=== PATIENT | female | born 1950 | race Caucasian/White ===

== ENCOUNTER 2018-12-27 14:06 | Inpatient (IN) | payer MEDICARE, OTHER ==
[~2018-12-27] VITALS: Ht 152.4 cm; Wt 77.3 kg
[2018-12-27 15:27] LABS: BASOPHILS ABSOLUTE AUTO 0.09 K/mm3 (0.00-0.23); BASOPHILS PERCENT AUTO 1 % (0-2); EOSINOPHILS ABSOLUTE AUTO 0.17 K/mm3 (0.00-0.68); EOSINOPHILS PERCENT AUTO 1 % (0-6); Hematocrit 32.2 % (33.0-51.0); Hemoglobin 10.1 g/dL (11.5-16.0); IMMATURE GRAN ABSOLUTE AUTO 0.07 K/mm3 (0.00-0.10); IMMATURE GRAN PERCENT AUTO 1 % (0-1); LYMPHOCYTES ABSOLUTE AUTO 0.52 K/mm3 (0.84-5.20); LYMPHOCYTES PERCENT AUTO 3 % (21-46); MONOCYTES ABSOLUTE AUTO 0.75 K/mm3 (0.16-1.47); MONOCYTES PERCENT AUTO 5 % (4-13); Mean Corpuscular HGB 27.3 pg (26.0-34.0); Mean Corpuscular HGB Conc 31.4 g/dL (31.5-36.5); Mean Corpuscular Volume 87 fL (80-100); Mean Platelet Volume 8.9 fL (9.1-12.4); NEUTROPHILS ABSOLUTE AUTO 13.53 K/mm3 (1.96-9.15); NEUTROPHILS PERCENT AUTO 89 % (41-73); Platelet Count 280 K/mm3 (150-400); RDW Coefficient Variation 19.9 % (11.7-14.2); RDW Standard Deviation 63.1 fL (35.1-46.3); White Blood Cell Count 15.13 K/mm3 (4.00-11.30)
[2018-12-27 15:47] LABS: International Normalized Ratio 1.03; Prothrombin Time Results 10.9 Sec (9.7-11.5)
[2018-12-27 15:52] LABS: Alanine Aminotransfer (ALT/SGP 16 U/L (12-78); Albumin, Blood 2.9 g/dL (3.4-5.0); Albumin/Globulin Ratio 0.5 (0.8-1.8); Alk Phos 102 U/L (50-136); Anion Gap 7 mmol/L (6-16); Aspartate Aminotrans (AST/SGOT 13 U/L (12-37); Bilirubin, Total 0.3 mg/dL (0.1-1.0); Blood Urea Nitrogen 15 mg/dL (8-24); Bun/Creatinine Ratio 28.1 (12.0-20.0); CO2, Blood 24 mmol/L (21-32); Calcium, Blood 8.4 mg/dL (8.5-10.1); Chloride, Blood 103 mmol/L (98-108); Creatinine, Blood 0.53 mg/dL (0.40-1.00); Globulin, Blood 5.4 g/dL (2.2-4.0); Glomerular Filtration Rate >60 (60-); Glucose, Blood 219 mg/dL (70-99); Sodium, Blood 134 mmol/L (136-145); Total Protein, Blood 8.3 g/dL (6.4-8.2)
[2018-12-27 17:00] LABS: Source, Urine Catheter
[2018-12-27] MEDS ORDERED: HYDHCL25 PO (17:02)
[2018-12-27] MEDS ORDERED: GABA300 PO (17:03)
[2018-12-27] MEDS ORDERED: Hydrocodone-Ap1 EA26 PO (17:03)
[2018-12-27] MEDS ORDERED: DULO60 PO (17:04)
[2018-12-27] MEDS ORDERED: METFORMIN HCL1000 M1 PO (17:32)
[2018-12-27 17:34] LABS: Bilirubin, Urine Neg (Neg); Blood, Urine 4+ (Neg); Glucose Qualitative, Urine Neg (Neg); Ketones, Urine 1+ (Neg); Leukocyte Esterase, Urine 3+ (Neg); Nitrite, Urine Neg (Neg); Protein, Urine 2+ (Neg); Urobilinogen, Urine 1+ (Normal)
[2018-12-27 17:45] LABS: Appearance, Urine Hazy (Clear); Color, Urine Yellow (P-Yellow)
[2018-12-27 17:46] LABS: Bacteria Many /hpf; Squamous Epithelial Cells Many /hpf (Few); White Blood Cells, Urine 25-50 /hpf (0-5)
[2018-12-27 17:47] LABS: Mucus Light (0-Heavy)
[2018-12-27] MEDS ORDERED: IBUP600 PO (21:39)
--- NOTE | 2018-12-27 21:43 | NUR ---
2129: RECEIVED REPORT AND PATIENT ARRIVED TO MED FLOOR. PATIENT C/O PAIN 8/10 ON HER BOTTOM AND FRANCO AREA 2ND TO HYDRITIS SKIN CONDITION. PICTURES TAKEN FOR CHART. OF BOTTOM, PERINEUM AND BACK OF HEAD, WHERE SHE HAS A WOUND FROM A FALL PRIOR TO ADMISSION. PHYSICAL ASSESSMENT COMPLETED. ADMISSION BEING DONE BY DAIRY PROCESSING EQUIPMENT OPERATOR. WARM BLANKET APPLIED. BED LOW AND LOCKED. CALL [place]O WITHIN REACH.
[2018-12-28 05:37] LABS: BASOPHILS ABSOLUTE AUTO 0.05 K/mm3 (0.00-0.23); BASOPHILS PERCENT AUTO 1 % (0-2); EOSINOPHILS ABSOLUTE AUTO 0.08 K/mm3 (0.00-0.68); EOSINOPHILS PERCENT AUTO 1 % (0-6); Hematocrit 27.5 % (33.0-51.0); Hemoglobin 8.7 g/dL (11.5-16.0); IMMATURE GRAN ABSOLUTE AUTO 0.05 K/mm3 (0.00-0.10); IMMATURE GRAN PERCENT AUTO 1 % (0-1); LYMPHOCYTES ABSOLUTE AUTO 0.57 K/mm3 (0.84-5.20); LYMPHOCYTES PERCENT AUTO 7 % (21-46); MONOCYTES PERCENT AUTO 5 % (4-13); Mean Corpuscular HGB Conc 31.6 g/dL (31.5-36.5); Mean Corpuscular Volume 85 fL (80-100); Mean Platelet Volume 8.8 fL (9.1-12.4); NEUTROPHILS ABSOLUTE AUTO 7.64 K/mm3 (1.96-9.15); NEUTROPHILS PERCENT AUTO 87 % (41-73); Platelet Count 218 K/mm3 (150-400); RDW Coefficient Variation 19.9 % (11.7-14.2); RDW Standard Deviation 62.4 fL (35.1-46.3); Red Blood Cell Count 3.22 M/mm3 (3.80-5.20); White Blood Cell Count 8.79 K/mm3 (4.00-11.30)
[2018-12-28 05:57] LABS: Anion Gap 4 mmol/L (6-16); Blood Urea Nitrogen 11 mg/dL (8-24); Bun/Creatinine Ratio 19.9 (12.0-20.0); CO2, Blood 28 mmol/L (21-32); Chloride, Blood 105 mmol/L (98-108); Creatinine, Blood 0.55 mg/dL (0.40-1.00); Glomerular Filtration Rate >60 (60-); Glucose, Blood 134 mg/dL (70-99); Potassium, Blood 3.6 mmol/L (3.5-5.5); Sodium, Blood 137 mmol/L (136-145)
--- NOTE | 2018-12-28 16:00 | NUR ---
SUMMARY PT IS A/O X4, PLEASANT AFFECT. SHE HAS BEEN UP w FWW, SBA. SHE HAD PHYTHER TODAY. RN NICU ASSISTED HER TO SHOWER. SHE STATE HAD SOME LIGHTHEADEDNESS WHEN UP HOWEVER IMPROVED FROM PREVIOUS DAY WHEN SHE FELL @ HOME. IV ANTIBX CONTINUE R/T UTI. PT HAS BEEN AFEBRILE SO FAR TODAY, VSS. SHE STATE PAIN R/T FALL LLE & H/A. SHE HAS HX CHR HYDRADENTITIS SKIN D/O, BUTTOCKS/FRANCO AREA EXCORIATION PAIN. HAVE GIVEN NORCO APPROX Q4 FOR RELIEF/CONTROL. SHE DECLINES PULLUPS OR BARRIER OINT TO EXCORIATIONS, STATE HER DR PREFERS OPEN TO AIR.
--- NOTE | 2018-12-29 04:32 | NUR ---
SHIFT SUMMARY PT CONTINUES TO URINATE FREQUENTLY. PT REQUIES SBA TO BSC SHE IS UNSTEADY AT TIMES. PT FRANCO AREA AND BUTTOCKS ARE STILL RED AND WEEPING. PT HAS SLEPT WELL BETWEEN VOIDING. PT CURRENTLY SLEEPING IN NO DISTRESS.
--- NOTE | 2018-12-29 18:10 | NUR ---
Shift Summary A/Ox3, pleasant and cooperative with care. Pt up to bedside commode c 1 assist, seems to be weak; however does know her limits. Medicated for L hip pain x 2 per EMAR. Denies N/V/D. Medicated for constipation with no results yet. Pt states feeling like the room is turning when therapy was in to see her today. Call light in reach and able to make needs known. VSS, afebrile. No other acute changes.
[2018-12-29 20:47] LABS: Vancomycin, Trough 5.7 ug/mL (5.0-10.0)
--- NOTE | 2018-12-30 04:22 | NUR ---
SHIFT SUMMARY PT HAD NO ISSUES NOTED. PT VOIDING REGULARLY BUT NOT FREQUENT LAST SHIFT. PT CONTINUES TO HAVE LEFT HIP DISCOMFORT. PT TX PER EMAR WITH GOOD RELIEF. PT HAS SLEPT BETTER TONIGHT AND IS CURRENTLY SLEEPING. CALL LIGHT IN REACH.
[2018-12-30 05:23] LABS: BASOPHILS ABSOLUTE AUTO 0.05 K/mm3 (0.00-0.23); BASOPHILS PERCENT AUTO 1 % (0-2); EOSINOPHILS ABSOLUTE AUTO 0.32 K/mm3 (0.00-0.68); EOSINOPHILS PERCENT AUTO 5 % (0-6); Hematocrit 27.6 % (33.0-51.0); Hemoglobin 8.7 g/dL (11.5-16.0); Mean Corpuscular HGB 27.2 pg (26.0-34.0); Mean Corpuscular HGB Conc 31.5 g/dL (31.5-36.5); Mean Corpuscular Volume 86 fL (80-100); Mean Platelet Volume 9.2 fL (9.1-12.4); Platelet Count 230 K/mm3 (150-400); RDW Coefficient Variation 19.4 % (11.7-14.2); RDW Standard Deviation 61.4 fL (35.1-46.3); White Blood Cell Count 6.01 K/mm3 (4.00-11.30)
[2018-12-30 05:24] LABS: IMMATURE GRAN ABSOLUTE AUTO 0.05 K/mm3 (0.00-0.10); IMMATURE GRAN PERCENT AUTO 1 % (0-1); LYMPHOCYTES ABSOLUTE AUTO 0.84 K/mm3 (0.84-5.20); LYMPHOCYTES PERCENT AUTO 14 % (21-46); MONOCYTES ABSOLUTE AUTO 0.54 K/mm3 (0.16-1.47); MONOCYTES PERCENT AUTO 9 % (4-13); NEUTROPHILS ABSOLUTE AUTO 4.21 K/mm3 (1.96-9.15); NEUTROPHILS PERCENT AUTO 70 % (41-73)
[2018-12-30 05:38] LABS: Anion Gap 2 mmol/L (6-16); Blood Urea Nitrogen 14 mg/dL (8-24); Bun/Creatinine Ratio 19.9 (12.0-20.0); CO2, Blood 32 mmol/L (21-32); Calcium, Blood 8.2 mg/dL (8.5-10.1); Chloride, Blood 103 mmol/L (98-108); Glomerular Filtration Rate >60 (60-); Glucose, Blood 140 mg/dL (70-99); Potassium, Blood 3.9 mmol/L (3.5-5.5); Sodium, Blood 137 mmol/L (136-145)
--- NOTE | 2018-12-30 16:11 | NUR ---
WARMED PRUNE JUICE, MELTED BUTTER AND APPLE JUICE GIVEN.
--- NOTE | 2018-12-30 16:32 | NUR ---
ALERT. ORIENTED. ONE PERSON ASSIST TO BSC. MEDICATED FOR PAIN T/O SHIFT W/GOOD RESULTS. GOOD APPETITE. TELE ON. IV PATENT. AWARE INFECTION CONTROL MD WILL SEE HER TOMORROW. CONRADO.
--- NOTE | 2018-12-30 17:26 | NUR ---
MEPILEX PLACED TO RT BUTTOCK DUE TO SOME WEEPING. SURGICAL SITE NOT COVERED PATIENT HAS SAID HER MD WANTED IT OPEN TO AIR. SURGICAL SITE IS DRY.
--- NOTE | 2018-12-31 04:51 | NUR ---
SHIFT SUMMARY PT REPORTS FEELING STRONGER BUT STILL HAS DIZZINESS WHEN SHE STANDS. PT IS STILL VOIDING FREQUENTLY. PT HAS COMPLAINTS FROM L HIP AND HER SKIN CONDITION. DRESSING ON HER BUTTOCK WAS CHANGED AND AREA CLEANED AND DRIED. PT CURRENTLY SLEEPING AND BREATHING EASY. CALL LIGHT IN DEJON.
[2018-12-31 09:41] LABS: Vancomycin, Trough 21.7 ug/mL (5.0-10.0)
[2018-12-31] MEDS ORDERED: ACET325 PO (11:47)
[2018-12-31] MEDS ORDERED: JUVEN PACKET1 EACH PO (11:49)
[2018-12-31] MEDS ORDERED: LINE600 PO (11:52)
[2018-12-31] MEDS ORDERED: Florastor250 MG PO (11:52)
[2018-12-31] MEDS ORDERED: DOXY100 PO (14:48)
--- NOTE | 2018-12-31 16:30 | NUR ---
DISCHARGE AT 1553 PATIENT DISCHARGED HOME WITH , THEY LIVE IN [facility] AND WILL FOLLOW UP WITH PCP AND WOUND CARE THERE. PATIENT RECEIVED 2 DOSES OF NORCO TODAY FOR HEADACHE (FROM HEAD LAC AREA), HIP PAIN, AND GENERALIZED PAIN. RECEIVED PAPER SCRIPT FOR NORCO BECAUSE PT STATED SHE WAS RUNNING OUT OF HER HOME AMOUNT. DISCHARGE PACKET EXPLAINED TO PATIENT AND . IV REMOVED.
== END 2018-12-31 15:54 | disposition home or self-care (01) | DRG 872 ==
LOC: ER 14:06 → MEDS 18:54 → ENPENDDIS 12-31 11:19 → MEDS 12-31 15:54
PROVIDERS: Internal Medicine; Nurse Practitioner Acute Care; Physician Assistant; ADMIT Internal Medicine
DX: A41.02 Sepsis due to Methicillin resistant Staphylococcus aureus (principal); N39.0 Urinary tract infection, site not specified; L73.2 Hidradenitis suppurativa; J44.9 Chronic obstructive pulmonary disease, unspecified; E11.9 Type 2 diabetes mellitus without complications; W19.XXXA Unspecified fall, initial encounter; E66.01 Morbid (severe) obesity due to excess calories; Z87.891 Personal history of nicotine dependence; Z99.81 Dependence on supplemental oxygen; Z79.84 Long term (current) use of oral hypoglycemic drugs; Z79.899 Other long term (current) drug therapy
CPT/HCPCS: 36415; 70450; 71046; 80048; 80053; 80202; 81001; 82565; 82947; 83605; 84484; 85025; 85610; 85730; 87040; 87077; 87081; 87086; 87186; 90471; 90714; 93005; 93010; 94760; 96361; 96374; 97110; 97112; 97116; 97162; 97530; 99285-25; A9270; A9270-GY; J1650; J3370; J7030; J7050; J7120

== ENCOUNTER 2022-01-19 23:10 | Emergency (ER) | payer MEDICARE, BC ==
[~2022-01-19] VITALS: Ht 152.4 cm; Wt 76.2 kg
[~2022-01-19 23:10] MED LIST: ACET325 PO; DOXY100 PO; DULO60 PO; Florastor250 MG PO; GABA300 PO; HYDHCL25 PO; Hydrocodone-Ap1 EA26 PO; IBUP600 PO; JUVEN PACKET1 EACH PO; LINE600 PO; METFORMIN HCL1000 M1 PO
[2022-01-19 23:35] LABS: BASOPHILS PERCENT AUTO 1 % (0-2); EOSINOPHILS ABSOLUTE AUTO 0.27 K/mm3 (0.00-0.68); EOSINOPHILS PERCENT AUTO 3 % (0-6); Hematocrit 34.1 % (33.0-51.0); Hemoglobin 10.6 g/dL (11.5-16.0); IMMATURE GRAN ABSOLUTE AUTO 0.05 K/mm3 (0.00-0.10); IMMATURE GRAN PERCENT AUTO 1 % (0-1); LYMPHOCYTES ABSOLUTE AUTO 0.78 K/mm3 (0.84-5.20); LYMPHOCYTES PERCENT AUTO 8 % (21-46); MONOCYTES ABSOLUTE AUTO 0.81 K/mm3 (0.16-1.47); MONOCYTES PERCENT AUTO 8 % (4-13); Mean Corpuscular HGB 22.6 pg (26.0-34.0); Mean Corpuscular HGB Conc 31.1 g/dL (31.5-36.5); Mean Corpuscular Volume 73 fL (80-100); Mean Platelet Volume 9.5 fL (9.1-12.4); NEUTROPHILS PERCENT AUTO 79 % (41-73); Platelet Count 234 K/mm3 (150-400); RDW Coefficient Variation 16.8 % (11.7-14.2); RDW Standard Deviation 43.4 fL (35.1-46.3); Red Blood Cell Count 4.68 M/mm3 (3.80-5.20); White Blood Cell Count 9.61 K/mm3 (4.00-11.30)
[2022-01-19] MEDS ORDERED: METOPROLOL TART25 MG PO (23:38)
[2022-01-19] MEDS ORDERED: ISOSORBIDE MONO30 MG PO (23:38)
[2022-01-19] MEDS ORDERED: DODEX1000 MCG/3 IJ (23:38)
[2022-01-19 23:49] LABS: Albumin, Blood 3.1 g/dL (3.4-5.0); Albumin/Globulin Ratio 0.6 (0.8-1.8); Bilirubin, Total 0.5 mg/dL (0.1-1.0); Calcium, Blood 8.4 mg/dL (8.5-10.1); Creatinine, Blood 0.65 mg/dL (0.40-1.00); Globulin, Blood 5.1 g/dL (2.2-4.0); Potassium, Blood 4.2 mmol/L (3.5-5.5); Total Protein, Blood 8.2 g/dL (6.4-8.2)
[2022-01-20 01:32] LABS: Influenza A, PCR NEGATIVE (NEGATIVE); Influenza B, PCR NEGATIVE (NEGATIVE); Resp Syncytial Virus, PCR NEGATIVE (NEGATIVE); SARS-Cov-2 (COVID-19) PCR, MMC NEGATIVE (NEGATIVE)
[2022-01-20] MEDS ORDERED: DOXY100 PO (02:16)
== END 2022-01-20 02:23 | disposition home or self-care (01) ==
LOC: ER 23:10
PROVIDERS: Emergency Medicine; Student in an Organized Health Care Education/Training Program
DX: J44.0 Chronic obstructive pulmonary disease with (acute) lower respiratory infection (principal); J18.9 Pneumonia, unspecified organism; C34.90 Malignant neoplasm of unspecified part of unspecified bronchus or lung; E11.9 Type 2 diabetes mellitus without complications; I25.2 Old myocardial infarction; Z88.1 Allergy status to other antibiotic agents; Z79.899 Other long term (current) drug therapy; Z79.84 Long term (current) use of oral hypoglycemic drugs
CPT/HCPCS: 0241U; 36415; 71045; 80053; 83880; 84484; 85025; 85379; 93005; 93010; 96374; 96375; 99284-25; J1885; J3010

== ENCOUNTER → 2023-03-21 | Outpatient (CLI) | payer MEDICARE, BC ==
[~2023-03-21] MED LIST changes: +DODEX1000 MCG/3 IJ; +ISOSORBIDE MONO30 MG PO; +METOPROLOL TART25 MG PO
== END | disposition home or self-care (01) ==
LOC: LAB 15:11 → LAB SHORT 15:11
DX: T14.8XXA Other injury of unspecified body region, initial encounter (principal); L03.116 Cellulitis of left lower limb; Z85.118 Personal history of other malignant neoplasm of bronchus and lung
CPT/HCPCS: 87070; 87077; 87147; 87186; 87205

== ENCOUNTER 2023-03-29 01:45 | Day surgery (SDC) | payer MEDICARE, BC | END 2023-03-29 22:52 | disposition home or self-care (01) | LOC: WOUND 01:45 | DX: L73.2 Hidradenitis suppurativa (principal); C34.90 Malignant neoplasm of unspecified part of unspecified bronchus or lung; I10 Essential (primary) hypertension; R06.02 Shortness of breath; E08.59 Diabetes mellitus due to underlying condition with other circulatory complications | CPT/HCPCS: A9270; G0463 ==

== ENCOUNTER 2023-04-12 02:49 | Day surgery (SDC) | payer MEDICARE, BC | END 2023-04-12 22:47 | disposition home or self-care (01) | LOC: WOUND 02:49 | DX: L73.2 Hidradenitis suppurativa (principal); C34.90 Malignant neoplasm of unspecified part of unspecified bronchus or lung; I10 Essential (primary) hypertension; E08.59 Diabetes mellitus due to underlying condition with other circulatory complications | CPT/HCPCS: G0463 ==

== ENCOUNTER 2023-04-19 01:38 | Day surgery (SDC) | payer MEDICARE, BC | END 2023-04-19 23:02 | disposition home or self-care (01) | LOC: WOUND 01:38 | DX: L73.2 Hidradenitis suppurativa (principal); C34.90 Malignant neoplasm of unspecified part of unspecified bronchus or lung; E11.59 Type 2 diabetes mellitus with other circulatory complications; I10 Essential (primary) hypertension; R06.02 Shortness of breath | CPT/HCPCS: G0463 ==

== ENCOUNTER 2023-04-26 02:47 | Day surgery (SDC) | payer MEDICARE, BC | END 2023-04-26 23:23 | disposition home or self-care (01) | LOC: WOUND 02:47 | DX: L73.2 Hidradenitis suppurativa (principal); C34.90 Malignant neoplasm of unspecified part of unspecified bronchus or lung; I10 Essential (primary) hypertension; E11.59 Type 2 diabetes mellitus with other circulatory complications | CPT/HCPCS: A9270; G0463 ==

== ENCOUNTER 2023-05-01 18:40 | Emergency (ER) | payer OTHER, MEDICARE, BC ==
[~2023-05-01] VITALS: Ht 152.4 cm; Wt 64.9 kg
[2023-05-01 18:59] LABS: BASOPHILS ABSOLUTE AUTO 0.17 K/mm3 (0.00-0.23); BASOPHILS PERCENT AUTO 1 % (0-2); EOSINOPHILS ABSOLUTE AUTO 0.19 K/mm3 (0.00-0.68); EOSINOPHILS PERCENT AUTO 1 % (0-6); Hematocrit 35.3 % (33.0-51.0); Hemoglobin 10.8 g/dL (11.5-16.0); IMMATURE GRAN ABSOLUTE AUTO 0.08 K/mm3 (0.00-0.10); IMMATURE GRAN PERCENT AUTO 1 % (0-1); LYMPHOCYTES ABSOLUTE AUTO 1.83 K/mm3 (0.84-5.20); LYMPHOCYTES PERCENT AUTO 14 % (21-46); MONOCYTES PERCENT AUTO 7 % (4-13); Mean Corpuscular HGB 22.8 pg (26.0-34.0); Mean Corpuscular HGB Conc 30.6 g/dL (31.5-36.5); Mean Corpuscular Volume 75 fL (80-100); Mean Platelet Volume 9.1 fL (9.1-12.4); NEUTROPHILS PERCENT AUTO 76 % (41-73); Platelet Count 372 K/mm3 (150-400); RDW Standard Deviation 45.1 fL (35.1-46.3); Red Blood Cell Count 4.74 M/mm3 (3.80-5.20); White Blood Cell Count 13.27 K/mm3 (4.00-11.30)
[2023-05-01 19:24] LABS: Albumin, Blood 2.6 g/dL (3.4-5.0); Albumin/Globulin Ratio 0.5 (0.8-1.8); Bilirubin, Total 0.5 mg/dL (0.1-1.0); Bun/Creatinine Ratio 31.2 (12.0-20.0); Calcium, Blood 8.8 mg/dL (8.5-10.1); Creatinine, Blood 0.55 mg/dL (0.40-1.00); Globulin, Blood 4.9 g/dL (2.2-4.0); Potassium, Blood 4.1 mmol/L (3.5-5.5); Total Protein, Blood 7.5 g/dL (6.4-8.2)
[2023-05-01 19:30] VITALS: BP 120/79
[2023-05-01] MEDS ORDERED: TRAZ50 PO (19:37)
[2023-05-01] MEDS ORDERED: Simvastatin20 MG PO (19:38)
[2023-05-01] MEDS ORDERED: METFORMIN HCL500 M2 PO (19:38)
[2023-05-01 19:46] LABS: International Normalized Ratio 1.1; Prothrombin Time Results 11.5 Sec (9.7-11.5)
== END 2023-05-01 20:49 | disposition home or self-care (01) ==
LOC: ER 18:40
PROVIDERS: Emergency Medicine
DX: S16.1XXA Strain of muscle, fascia and tendon at neck level, initial encounter (principal); S09.90XA Unspecified injury of head, initial encounter; M79.641 Pain in right hand; M79.604 Pain in right leg; V43.52XA Car driver injured in collision with other type car in traffic accident, initial encounter; R91.8 Other nonspecific abnormal finding of lung field; E04.1 Nontoxic single thyroid nodule; Z88.1 Allergy status to other antibiotic agents; J44.9 Chronic obstructive pulmonary disease, unspecified; E11.9 Type 2 diabetes mellitus without complications; I25.2 Old myocardial infarction; Z79.899 Other long term (current) drug therapy; Z79.84 Long term (current) use of oral hypoglycemic drugs; Z87.891 Personal history of nicotine dependence
CPT/HCPCS: 70450; 71045; 71260; 72125; 73130; 73610; 74177; 80053; 83690; 85025; 85610; 96374-59; 99285-25; J2270; Q9967

== ENCOUNTER 2023-05-12 01:08 | Day surgery (SDC) | payer MEDICARE, BC ==
[~2023-05-12 01:08] MED LIST changes: +METFORMIN HCL500 M2 PO; +Simvastatin20 MG PO; +TRAZ50 PO
== END 2023-05-12 22:53 | disposition home or self-care (01) ==
LOC: WOUND 01:08
DX: L73.2 Hidradenitis suppurativa (principal); C34.90 Malignant neoplasm of unspecified part of unspecified bronchus or lung; I10 Essential (primary) hypertension; R06.02 Shortness of breath; E11.59 Type 2 diabetes mellitus with other circulatory complications
CPT/HCPCS: G0463

== ENCOUNTER 2023-05-25 01:37 | Day surgery (SDC) | payer MEDICARE, BC | END 2023-05-25 22:52 | disposition home or self-care (01) | LOC: WOUND 01:37 | DX: L73.2 Hidradenitis suppurativa (principal); I10 Essential (primary) hypertension; C34.90 Malignant neoplasm of unspecified part of unspecified bronchus or lung; E08.59 Diabetes mellitus due to underlying condition with other circulatory complications | CPT/HCPCS: G0463 ==

== ENCOUNTER 2023-10-11 03:02 | Day surgery (SDC) | payer MEDICARE, BC | END 2023-10-11 23:06 | disposition home or self-care (01) | LOC: WOUND 03:02 | DX: L73.2 Hidradenitis suppurativa (principal); C34.90 Malignant neoplasm of unspecified part of unspecified bronchus or lung; I10 Essential (primary) hypertension | CPT/HCPCS: G0463 ==

== ENCOUNTER 2023-10-16 01:50 | Day surgery (SDC) | payer MEDICARE, BC | END 2023-10-16 04:31 | disposition home or self-care (01) | LOC: WOUND 01:50 | DX: L73.2 Hidradenitis suppurativa (principal); C34.90 Malignant neoplasm of unspecified part of unspecified bronchus or lung; E11.9 Type 2 diabetes mellitus without complications; I10 Essential (primary) hypertension | CPT/HCPCS: G0463 ==

== ENCOUNTER 2023-10-23 03:29 | Day surgery (SDC) | payer MEDICARE, BC | END 2023-10-23 23:16 | disposition home or self-care (01) | LOC: WOUND 03:29 | DX: L73.2 Hidradenitis suppurativa (principal); C34.90 Malignant neoplasm of unspecified part of unspecified bronchus or lung; E11.9 Type 2 diabetes mellitus without complications; I10 Essential (primary) hypertension; R06.02 Shortness of breath | CPT/HCPCS: G0463 ==

== ENCOUNTER 2023-11-30 03:08 | Day surgery (SDC) | payer MEDICARE, BC | END 2023-11-30 22:44 | disposition home or self-care (01) | LOC: WOUND 03:08 | DX: L73.2 Hidradenitis suppurativa (principal); C34.90 Malignant neoplasm of unspecified part of unspecified bronchus or lung; I10 Essential (primary) hypertension; R06.02 Shortness of breath | CPT/HCPCS: G0463 ==

== ENCOUNTER 2023-12-23 16:44 | Emergency (ER) | payer MEDICARE, BC ==
[~2023-12-23] VITALS: Ht 152.4 cm; Wt 55.8 kg
[2023-12-23 17:01] VITALS: BP 123/82
[2023-12-23] MEDS ORDERED: Acetaminophen 500 MG Tab PO ONE (17:50)
[2023-12-23] MEDS ORDERED: Lidocaine/Tetracaine/Epinephr 3 ML GEL SYRINGE TOP ONE (17:50)
[2023-12-23] MEDS ORDERED: Diphth,Pertuss(Acell),Tet Vac 0.5 ML VIAL IM ONE (19:05)
== END 2023-12-23 19:23 | disposition home or self-care (01) ==
LOC: ER 16:44
DX: S01.01XA Laceration without foreign body of scalp, initial encounter (principal); W22.8XXA Striking against or struck by other objects, initial encounter; Z88.1 Allergy status to other antibiotic agents; Z79.899 Other long term (current) drug therapy; Z79.84 Long term (current) use of oral hypoglycemic drugs; Z87.891 Personal history of nicotine dependence
CPT/HCPCS: 12001; 70450; 90471; 90715; 99283-25; A9270

== ENCOUNTER 2024-02-05 09:02 | Day surgery (SDC) | payer MEDICARE, BC | END 2024-02-05 23:47 | disposition home or self-care (01) | LOC: WOUND 09:02 | DX: L73.2 Hidradenitis suppurativa (principal); E11.622 Type 2 diabetes mellitus with other skin ulcer; S31.809D Unspecified open wound of unspecified buttock, subsequent encounter; S31.109D Unspecified open wound of abdominal wall, unspecified quadrant without penetration into peritoneal cavity, subsequent encounter; J44.9 Chronic obstructive pulmonary disease, unspecified; I10 Essential (primary) hypertension; I25.2 Old myocardial infarction; E11.9 Type 2 diabetes mellitus without complications; Z88.8 Allergy status to other drugs, medicaments and biological substances; X58.XXXD Exposure to other specified factors, subsequent encounter | CPT/HCPCS: G0463 ==

== ENCOUNTER 2024-02-12 02:20 | Day surgery (SDC) | payer MEDICARE, BC | END 2024-02-13 00:13 | disposition home or self-care (01) | LOC: WOUND 02:20 | DX: L73.2 Hidradenitis suppurativa (principal); C34.90 Malignant neoplasm of unspecified part of unspecified bronchus or lung; J44.9 Chronic obstructive pulmonary disease, unspecified; E11.621 Type 2 diabetes mellitus with foot ulcer; I10 Essential (primary) hypertension; I25.2 Old myocardial infarction | CPT/HCPCS: G0463 ==

== ENCOUNTER 2024-02-19 03:59 | Day surgery (SDC) | payer MEDICARE, BC ==
[2024-02-19] MEDS ORDERED: Lidocaine HCl 4% Cream 5 GM ONE (11:28)
[2024-02-20] MEDS ORDERED: TRAZ100 PO (23:48)
== END 2024-02-19 23:00 | disposition home or self-care (01) ==
LOC: WOUND 03:59
DX: L73.2 Hidradenitis suppurativa (principal); E11.9 Type 2 diabetes mellitus without complications; S31.109D Unspecified open wound of abdominal wall, unspecified quadrant without penetration into peritoneal cavity, subsequent encounter; X58.XXXD Exposure to other specified factors, subsequent encounter
CPT/HCPCS: A9270; G0463

== ENCOUNTER 2024-02-20 15:34 | Inpatient (IN) | payer MEDICARE, BC ==
[~2024-02-20] VITALS: Ht 152.4 cm; Wt 59.7 kg
[~2024-02-20 15:34] MED LIST changes: -Hydrocodone-Ap1 EA26 PO; +Norco 7.5-3251 EACH PO
[2024-02-20 16:33] LABS: BASOPHILS ABSOLUTE AUTO 0.18 K/mm3 (0.00-0.23); BASOPHILS PERCENT AUTO 1 % (0-2); EOSINOPHILS ABSOLUTE AUTO 0.09 K/mm3 (0.00-0.68); EOSINOPHILS PERCENT AUTO 1 % (0-6); Hematocrit 32.1 % (33.0-51.0); IMMATURE GRAN ABSOLUTE AUTO 0.11 K/mm3 (0.00-0.10); IMMATURE GRAN PERCENT AUTO 1 % (0-1); LYMPHOCYTES PERCENT AUTO 8 % (21-46); MONOCYTES ABSOLUTE AUTO 1.15 K/mm3 (0.16-1.47); MONOCYTES PERCENT AUTO 9 % (4-13); Mean Corpuscular HGB Conc 31.2 g/dL (31.5-36.5); Mean Corpuscular Volume 83 fL (80-100); Mean Platelet Volume 9.4 fL (9.1-12.4); NEUTROPHILS ABSOLUTE AUTO 10.71 K/mm3 (1.96-9.15); NEUTROPHILS PERCENT AUTO 81 % (41-73); Platelet Count 404 K/mm3 (150-400); RDW Coefficient Variation 18.6 % (11.7-14.2); RDW Standard Deviation 56.5 fL (35.1-46.3); Red Blood Cell Count 3.85 M/mm3 (3.80-5.20); White Blood Cell Count 13.24 K/mm3 (4.00-11.30)
[2024-02-20 16:52] LABS: Albumin, Blood 2.3 g/dL (3.4-5.0); Albumin/Globulin Ratio 0.5 (0.8-1.8); Bilirubin, Total 0.6 mg/dL (0.1-1.0); Bun/Creatinine Ratio 23.9 (12.0-20.0); Calcium, Blood 8.6 mg/dL (8.5-10.1); Creatinine, Blood 0.67 mg/dL (0.40-1.00); Potassium, Blood 4.4 mmol/L (3.5-5.5); Total Protein, Blood 7.3 g/dL (6.4-8.2)
[2024-02-20] MEDS ORDERED: NS 1,000 ML IV SCH (18:55)
[2024-02-20] MEDS ORDERED: Acetaminophen 500 MG Tab PO ONE (19:05)
[2024-02-20] MEDS ORDERED: LevoFLOXacin 750 MG/D5W 150ML 150 ML IV ONE (19:05)
[2024-02-20] MEDS ORDERED: FLU VACC TS2024-25(6MOS UP)/PF 45 MCG/0.5 ML SYRINGE IM SCH (22:30)
[2024-02-20] MEDS ORDERED: Ondansetron HCl 2 MG / ML 2ML Vial IV PRN (22:30)
[2024-02-20] MEDS ORDERED: Ipratropium/Albuterol SulF 2.5-0.5MG/3 ML Amp INH PRN (22:30)
[2024-02-20 22:56] LABS: Source, Urine Clean Catch
[2024-02-20] MEDS ORDERED: Enoxaparin 40 MG/0.4 ML SYR SC SCH (23:00)
[2024-02-20 23:07] LABS: Bilirubin, Urine Neg (Neg); Blood, Urine 5+ (Neg); Glucose Qualitative, Urine Neg (Neg); Ketones, Urine Neg (Neg); Leukocyte Esterase, Urine 3+ (Neg); Nitrite, Urine Neg (Neg); Protein, Urine 1+ (Neg); Urobilinogen, Urine NORM (Normal); pH, Urine 6.5 (5.0-8.0)
[2024-02-20 23:27] LABS: Appearance, Urine Clear (Clear); Color, Urine Yellow (P-Yellow)
[2024-02-20 23:28] LABS: Bacteria Mod /hpf; Red Blood Cells, Urine 0-2 /hpf (0-2); Squamous Epithelial Cells Few /hpf (Few); White Blood Cells, Urine 50-100 /hpf (0-5)
[2024-02-20 23:42] LABS: Influenza A, PCR NEGATIVE (NEGATIVE); Influenza B, PCR NEGATIVE (NEGATIVE); Resp Syncytial Virus, PCR NEGATIVE (NEGATIVE); SARS-Cov-2 (COVID-19) PCR, MMC NEGATIVE (NEGATIVE)
[2024-02-20] MEDS ORDERED: TRAZ100 PO (23:48)
[2024-02-21] VITALS (10 sets, daily range): BP systolic 105–148; BP diastolic 59–84
[2024-02-21] MEDS ORDERED: TraZODone HCl 100 MG Tab PO ONE (00:05)
[2024-02-21] MEDS ORDERED: HYDROcodone 7.5-APAP 325 TAB PO ONE (00:05)
[2024-02-21] MEDS ORDERED: FentaNYL Citrate 50 MCG/ML 2 ML Injection IV PRN (00:25)
[2024-02-21] MEDS ORDERED: Ketorolac Tromethamine 15mg Vial IV PRN (00:35)
[2024-02-21] MEDS ORDERED: Colchicine 0.6 MG TAB PO ONE (01:00)
[2024-02-21 03:26] LABS: BASOPHILS ABSOLUTE AUTO 0.09 K/mm3 (0.00-0.23); BASOPHILS PERCENT AUTO 1 % (0-2); EOSINOPHILS ABSOLUTE AUTO 0.13 K/mm3 (0.00-0.68); EOSINOPHILS PERCENT AUTO 2 % (0-6); Hematocrit 29.6 % (33.0-51.0); Hemoglobin 9.2 g/dL (11.5-16.0); IMMATURE GRAN ABSOLUTE AUTO 0.09 K/mm3 (0.00-0.10); IMMATURE GRAN PERCENT AUTO 1 % (0-1); LYMPHOCYTES ABSOLUTE AUTO 0.67 K/mm3 (0.84-5.20); LYMPHOCYTES PERCENT AUTO 8 % (21-46); MONOCYTES ABSOLUTE AUTO 0.86 K/mm3 (0.16-1.47); MONOCYTES PERCENT AUTO 11 % (4-13); Mean Corpuscular HGB Conc 31.1 g/dL (31.5-36.5); Mean Corpuscular Volume 84 fL (80-100); Mean Platelet Volume 9.4 fL (9.1-12.4); NEUTROPHILS ABSOLUTE AUTO 6.13 K/mm3 (1.96-9.15); NEUTROPHILS PERCENT AUTO 77 % (41-73); Platelet Count 290 K/mm3 (150-400); RDW Coefficient Variation 18.5 % (11.7-14.2); RDW Standard Deviation 57.3 fL (35.1-46.3); Red Blood Cell Count 3.54 M/mm3 (3.80-5.20); White Blood Cell Count 7.97 K/mm3 (4.00-11.30)
[2024-02-21 03:43] LABS: Albumin, Blood 2.1 g/dL (3.4-5.0); Albumin/Globulin Ratio 0.5 (0.8-1.8); Bilirubin, Total 0.4 mg/dL (0.1-1.0); Calcium, Blood 8.4 mg/dL (8.5-10.1); Creatinine, Blood 0.62 mg/dL (0.40-1.00); Globulin, Blood 4.5 g/dL (2.2-4.0); Potassium, Blood 3.5 mmol/L (3.5-5.5); Total Protein, Blood 6.6 g/dL (6.4-8.2)
--- NOTE | 2024-02-21 04:04 | NUR ---
SHIFT SUMMARY PT REMAINS ON NC THROUGH THE NIGHT. PT APPEARS TO BE COMFORTABLY RESTING ON HER PHONE FOR MOST OF THE NIGHT. PT NOTED SHE HAS HIDRADENITIS IN THE GROIN AND ON THE BUTTOCKS. PT STILL AOX4 GCS 15. PT VERY [place] AND IS VERY PLEASANT AND COOPERATIVE. WILL CONTINUE PLAN OF CARE.
[2024-02-21] MEDS ORDERED: HYDROcodone 7.5-APAP 325 TAB PO PRN ×2 (06:25→11:01)
[2024-02-21] MEDS ORDERED: Insulin Human Lispro 100 Units/ML 3ML Syringe SC SCH (07:30)
[2024-02-21 08:23] LABS: Base Excess Venous 2.2 mmol/L; Bicarbonate Venous 25.5 mmol/L (24.0-30.0); PCO2 Venous 55.1 mmHg (38-42); pH Blood Venous 7.32 (7.34-7.37)
[2024-02-21] MEDS ORDERED: MethylPREDNISolone Sod Succ 125 MG Vial IV SCH ×2 (09:00)
[2024-02-21] MEDS ORDERED: Colchicine 0.6 MG TAB PO SCH (09:00)
[2024-02-21 09:25] LABS: Magnesium, Blood 1.8 mg/dL (1.6-2.4); Phosphorus, Blood 3.8 mg/dL (2.5-4.9)
--- NOTE | 2024-02-21 14:55 | NUR ---
NURSE NOTE A+O X4, SPOUSE AT BEDSIDE. OT CURRENTLY AT BEDSIDE TO WORK WITH PATIENT. CALL LIGHT IN REACH, WILL CONTINUE WITH PLAN OF CARE.
--- NOTE | 2024-02-21 15:04 | NUR ---
NURSE NOTE DR. BAZAN ROUNDED, REQUESTED PATIENT BE PLACED ON BI-PAP FOR CO2 OF 50. I CONTACTED DONNELL HUSAIN WITH THIS REQUEST. CALL LIGHT IN REACH.
--- NOTE | 2024-02-21 17:53 | NUR ---
SHIFT SUMMARY A+O X4, ABLE TO MAKE NEEDS KNOWN. ONE PERSON ASSIST SBA TO BSC. PATIENT ON 2 LITERS NC WHICH IS HER NORMAL HOME O2 LEVEL. PATIENT WAS PLACED ON BI-PAP FOR ONE HOUR DUE TO CO2 LEVEL. PATIENT WORKED WITH PT AND OT DURING SHIFT. CHRONIC PAIN IN BACK AND BUTTOCK AT BASELINE, ABLE TO MOVE SELF IN BED. ECHO DONE TODAY DURING SHIFT. CALL LIGHT IN REACH, WILL CONTINUE TO TREAT.
[2024-02-21] MEDS ORDERED: NS 250 ML IV PRN (19:30)
--- NOTE | 2024-02-21 20:28 | NUR ---
ASSUMPTION OF CARE: PATIENT IS SITTING UPRIGHT IN BED AFTER BEING TOILETED BY HEAD USHER. PATIENT IS ALERT AND ORIENTED X 4, ABLE TO USE THE CALL LIGHT, MAKE NEEDS KNOWN, IS ON HOME BASELINE O2. MILD GENERALIZED WEAKNESS. CURRENTLY ST [address] DENIES CHEST PAIN, DOES ENDORSE PLEURITIC PAIN WITH COUGH. RHONCHI IN THE BASES CLEARED WITH COUGH. CURRENLTY INFUSING ABX. NO ACUTE CONCERNS FROM THIS RN.
[2024-02-21] MEDS ORDERED: TraZODone HCl 100 MG Tab PO SCH (21:00)
[2024-02-21] MEDS ORDERED: LevoFLOXacin 750 MG/D5W 150ML 150 ML IV SCH (21:00)
[2024-02-22 02:56] VITALS: BP 131/76
[2024-02-22 03:58] LABS: BASOPHILS ABSOLUTE AUTO 0.05 K/mm3 (0.00-0.23); BASOPHILS PERCENT AUTO 1 % (0-2); EOSINOPHILS ABSOLUTE AUTO 0.08 K/mm3 (0.00-0.68); EOSINOPHILS PERCENT AUTO 1 % (0-6); Hematocrit 28.7 % (33.0-51.0); IMMATURE GRAN ABSOLUTE AUTO 0.12 K/mm3 (0.00-0.10); IMMATURE GRAN PERCENT AUTO 1 % (0-1); LYMPHOCYTES ABSOLUTE AUTO 0.84 K/mm3 (0.84-5.20); LYMPHOCYTES PERCENT AUTO 9 % (21-46); MONOCYTES ABSOLUTE AUTO 0.71 K/mm3 (0.16-1.47); MONOCYTES PERCENT AUTO 8 % (4-13); Mean Corpuscular HGB 25.8 pg (26.0-34.0); Mean Corpuscular HGB Conc 31.4 g/dL (31.5-36.5); Mean Corpuscular Volume 82 fL (80-100); Mean Platelet Volume 9.2 fL (9.1-12.4); NEUTROPHILS ABSOLUTE AUTO 7.41 K/mm3 (1.96-9.15); NEUTROPHILS PERCENT AUTO 81 % (41-73); Platelet Count 301 K/mm3 (150-400); RDW Coefficient Variation 18.2 % (11.7-14.2); RDW Standard Deviation 54.4 fL (35.1-46.3); Red Blood Cell Count 3.49 M/mm3 (3.80-5.20); White Blood Cell Count 9.21 K/mm3 (4.00-11.30)
[2024-02-22 04:30] LABS: Bun/Creatinine Ratio 27.6 (12.0-20.0); Calcium, Blood 8.6 mg/dL (8.5-10.1); Creatinine, Blood 0.73 mg/dL (0.40-1.00)
--- NOTE | 2024-02-22 06:48 | NUR ---
EOS: NO CHANGES FROM ASSUMPTION OF CARE PLAN OF CARE CONTINUES, DENIES CHEST PAIN PRESSURE OR SOB.
[2024-02-22 07:58] VITALS: BP 142/77
[2024-02-22] MEDS ORDERED: Colchicine 0.6 MG TAB PO SCH (09:00)
--- NOTE | 2024-02-22 09:38 | NUR ---
0930 Pt c/o dyspnea. Heart rate 122 bpm, sinus tachycardia. Pt is 92% spo2 on 2 l/min, RR 20/min. NO wheezing appreciated on auscultation. Dr. Chance at bedside. B/P is stable. 0940 No significant changes to vital signs but pt states that she is feeling better, that dyspnea has improved. She remains sitting in high amezcua's position in bed. Reported to primary RN Bryn. Dr. Chance to investigate chart and possibly change orders. Pt states that she has had high heart rate up to 130s over the past two years, and was given medication for it as an outpatient.
[2024-02-22 11:08] VITALS: BP 145/74
[2024-02-22 14:13] LABS: Adenovirus Not Detected (NOT DETECT); Bordetella pertussis Not Detected (NOT DETECT); Chlamydophila pneumoniae Not Detected (NOT DETECT); Coronavirus 229E Not Detected (NOT DETECT); Coronavirus HKU1 Not Detected (NOT DETECT); Coronavirus NL63 Not Detected (NOT DETECT); Coronavirus OC43 Not Detected (NOT DETECT); Human Metapneumovirus Not Detected (NOT DETECT); Human Rhinovirus/Enterovirus Not Detected (NOT DETECT); Influenza A/2009-H1 Not Detected (NOT DETECT); Influenza A/H1 Not Detected (NOT DETECT); Influenza A/H3 Not Detected (NOT DETECT); Influenza B Not Detected (NOT DETECT); Mycoplasma pneumoniae Not Detected (NOT DETECT); Parainfluenza Virus 1 Not Detected (NOT DETECT); Parainfluenza Virus 2 Not Detected (NOT DETECT); Parainfluenza Virus 3 Not Detected (NOT DETECT); Parainfluenza Virus 4 Not Detected (NOT DETECT); Respiratory Syncytial Virus Not Detected (NOT DETECT); SARS-Cov-2 (COVID-19), BioFire Detected (NOT DETECT)
--- NOTE | 2024-02-22 14:33 | NUR ---
TRANSFER OF CARE PT A&Ox4, CALLS AND COMMUNICATES NEEDS APPROPRIATELY. SBA TO BATHROOM, CONTINENT OF URINE, NO BM AT THIS TIME. FRANCO AREA DRESSINGS CHANGED. BP STABLE, SINUS TACH 115's UP TO 130's WITH ACTIVITY, DENIES CHEST PRESSURE. RECONCILED HOME MEDICATIONS AND NOTIFIED PROVIDER THAT PT TAKE 25mg METOPROLOL BID AT HOME. SpO2> 92% 1-2L VIA NC AT REST, 3-4L WITH ACTIVITY, REPORT SOB WITH ACTIVITY. PT WITH MOMENT OF CP/SOB AT START OF SHIFT, PHYSICIAN AT BEDSIDE. CP SUBSIDED QUICKLY AND WITHOUT INTERVENTION. MANAGED PTs CHRONIC PAIN PER EMAR. NO OTHER EVENTS, REPORT GIVEN TO ALONSO OTOOLE AT APPROXIMATELY 1415.
--- NOTE | 2024-02-22 15:15 | NUR ---
Assumed care of patient. Pt resting in chair. LS diminished with fine rhonci in base of L Lung. HR reg but tachycardic. BT positive. Pt was informed that she tested positive for Covid. Isolation precautions explained. Pt denies pain or questions. Call light in reach. Will monitor.
[2024-02-22 15:52] VITALS: BP 148/75
--- NOTE | 2024-02-22 19:36 | NUR ---
SHIFT SUMMARY: Pt currently resting in bed. HR has remained tachycardic this shift. New orders for Metoprolol to start this evening. Pt has remained on her home oxygen of 1-4L depending on activity. No other changes at this time. WIll report to night RN.
[2024-02-22 20:18] VITALS: BP 156/87
[2024-02-22] MEDS ORDERED: Metoprolol Tartrate 25 MG Tab PO SCH (21:00)
--- NOTE | 2024-02-22 21:48 | NUR ---
TRANSFER NOTE HANDOFF REPORT FROM PCU GISELE. PT ARRIVED TO FLOOR VIA WC. PT ORIENTED TO UNIT. CALL BUTTON WITHIN REACH. [address] TELEMETRY IN PLACE. PERSONAL POSSESSIONS WITH PATIENT.
--- NOTE | 2024-02-23 03:01 | NUR ---
SHIFT SUMMARY TRANSFERED FROM PCU THIS SHIFT FOR PNEUMONIA. LIMITED CODE - MEDS OKAY. ISO FOR COVID+. IV ANTIB RX ARE SCHEDULED. ACHS CBG'S, LOW SS. SHE WILL GO HOME W/HH WHEN STABLE FOR DC. TELEMETRY: TACHY @ 101 BPM. ADA DIET. SHE IS ON 2 LPM O2, THIS IS HER BASELINE. STANDBY ASSIST - BRP. NO NEW CONCERNS THIS SHIFT.
[2024-02-23 04:52] VITALS: BP 151/77
[2024-02-23 04:53] LABS: BASOPHILS ABSOLUTE AUTO 0.12 K/mm3 (0.00-0.23); BASOPHILS PERCENT AUTO 1 % (0-2); EOSINOPHILS ABSOLUTE AUTO 0.41 K/mm3 (0.00-0.68); EOSINOPHILS PERCENT AUTO 5 % (0-6); Hematocrit 33.6 % (33.0-51.0); Hemoglobin 10.3 g/dL (11.5-16.0); IMMATURE GRAN ABSOLUTE AUTO 0.14 K/mm3 (0.00-0.10); IMMATURE GRAN PERCENT AUTO 2 % (0-1); LYMPHOCYTES PERCENT AUTO 16 % (21-46); MONOCYTES ABSOLUTE AUTO 0.77 K/mm3 (0.16-1.47); MONOCYTES PERCENT AUTO 9 % (4-13); Mean Corpuscular HGB 26.1 pg (26.0-34.0); Mean Corpuscular HGB Conc 30.7 g/dL (31.5-36.5); Mean Corpuscular Volume 85 fL (80-100); NEUTROPHILS ABSOLUTE AUTO 5.63 K/mm3 (1.96-9.15); NEUTROPHILS PERCENT AUTO 67 % (41-73); Platelet Count 335 K/mm3 (150-400); RDW Coefficient Variation 18.3 % (11.7-14.2); RDW Standard Deviation 57.7 fL (35.1-46.3); Red Blood Cell Count 3.95 M/mm3 (3.80-5.20); White Blood Cell Count 8.37 K/mm3 (4.00-11.30)
[2024-02-23 06:05] LABS: Bun/Creatinine Ratio 30.4 (12.0-20.0); Calcium, Blood 8.7 mg/dL (8.5-10.1); Creatinine, Blood 0.69 mg/dL (0.40-1.00); Potassium, Blood 4.4 mmol/L (3.5-5.5)
[2024-02-23 07:52] VITALS: BP 135/55
[2024-02-23] MEDS ORDERED: LEVOFLOXACIN250 M1 PO (11:08)
--- NOTE | 2024-02-23 13:34 | NUR ---
DISCHARGE SUMMARY PT DC THIS SHIFT. D/C INSTRUCTION GONE OVER WITH PT AND PT WHOM BOTH STATED UNDERSTANDING. PT WAS ESCORTED OUT TO PRIVATE VEHICLE VIA WHEELCHAIR BY BREAST PULLER. HARD SCRIPT GIVEN TO PT AND PLACED IN PT DC FOLDER.
[2024-02-23] MEDS ORDERED: LevoFLOXacin 750 MG/D5W 150ML 150 ML IV SCH ×2 (21:00)
== END 2024-02-23 13:15 | disposition home health service (06) | DRG 177 ==
LOC: ER 15:34 → PCU 22:25 → ERHOLD 22:25 → PCU 02-21 00:52 → MEDS 02-22 21:25 → ENPENDDIS 02-23 11:19 → MEDS 02-23 13:15
PROVIDERS: Family Medicine; Internal Medicine; Student in an Organized Health Care Education/Training Program; ADMIT Internal Medicine
DX: U07.1 COVID-19 (principal); J12.82 Pneumonia due to coronavirus disease 2019; J44.0 Chronic obstructive pulmonary disease with (acute) lower respiratory infection; J44.1 Chronic obstructive pulmonary disease with (acute) exacerbation; N39.0 Urinary tract infection, site not specified; I31.39 Other pericardial effusion (noninflammatory); J96.11 Chronic respiratory failure with hypoxia; J96.12 Chronic respiratory failure with hypercapnia; G47.33 Obstructive sleep apnea (adult) (pediatric); D50.9 Iron deficiency anemia, unspecified; R91.1 Solitary pulmonary nodule; I48.91 Unspecified atrial fibrillation; E11.9 Type 2 diabetes mellitus without complications; L73.2 Hidradenitis suppurativa; I25.2 Old myocardial infarction; E88.09 Other disorders of plasma-protein metabolism, not elsewhere classified; S31.109D Unspecified open wound of abdominal wall, unspecified quadrant without penetration into peritoneal cavity, subsequent encounter; X58.XXXD Exposure to other specified factors, subsequent encounter; Z99.81 Dependence on supplemental oxygen; Z79.84 Long term (current) use of oral hypoglycemic drugs; Z79.899 Other long term (current) drug therapy; Z88.8 Allergy status to other drugs, medicaments and biological substances; Z87.891 Personal history of nicotine dependence; Z85.118 Personal history of other malignant neoplasm of bronchus and lung; Z91.199 Patient's noncompliance with other medical treatment and regimen due to unspecified reason; Z98.890 Other specified postprocedural states; Z90.49 Acquired absence of other specified parts of digestive tract
CPT/HCPCS: 0202U; 0241U; 36415; 70450; 71046; 71260; 72125; 80048; 80053; 81001; 82803; 82947; 83605; 83690; 83735; 83880; 84100; 84145; 84484; 85025; 85379; 86140; 87040; 87086; 93005; 93010; 93306; 94660; 94762; 96365-59; 96366; 97110; 97116; 97162; 97165; 97530; 97535; 99285-25; A9270; G0463; J1650; J1885; J1956; J2405; J2919; J3010; J7030; J7050; Q9967

== ENCOUNTER 2024-03-06 00:29 | Day surgery (SDC) | payer MEDICARE, BC ==
[~2024-03-06 00:29] MED LIST changes: +LEVOFLOXACIN250 M1 PO; +TRAZ100 PO
[2024-03-06] MEDS ORDERED: Lidocaine HCl 4% Topical Soln 5 MLUDC ONE (08:34)
== END 2024-03-06 22:59 | disposition home or self-care (01) ==
LOC: WOUND
DX: L02.415 Cutaneous abscess of right lower limb (principal); L02.416 Cutaneous abscess of left lower limb; E11.622 Type 2 diabetes mellitus with other skin ulcer; L73.2 Hidradenitis suppurativa
CPT/HCPCS: A6213; A9270; G0463

== ENCOUNTER 2024-03-13 02:57 | Day surgery (SDC) | payer MEDICARE, BC ==
[2024-03-13] MEDS ORDERED: Lidocaine HCl 4% Cream 5 GM ONE (10:54)
== END 2024-03-13 23:00 | disposition home or self-care (01) ==
LOC: WOUND 02:57
DX: L02.415 Cutaneous abscess of right lower limb (principal); L02.416 Cutaneous abscess of left lower limb; L73.2 Hidradenitis suppurativa; E11.622 Type 2 diabetes mellitus with other skin ulcer
CPT/HCPCS: A6213; A9270; G0463

== ENCOUNTER 2024-03-20 03:28 | Day surgery (SDC) | payer MEDICARE, BC | END 2024-03-20 23:00 | disposition home or self-care (01) | LOC: WOUND 03:28 | DX: L73.2 Hidradenitis suppurativa (principal); S31.809A Unspecified open wound of unspecified buttock, initial encounter; S31.109A Unspecified open wound of abdominal wall, unspecified quadrant without penetration into peritoneal cavity, initial encounter; X58.XXXA Exposure to other specified factors, initial encounter; L02.416 Cutaneous abscess of left lower limb; E11.622 Type 2 diabetes mellitus with other skin ulcer; R07.9 Chest pain, unspecified; R94.39 Abnormal result of other cardiovascular function study | CPT/HCPCS: 78452; 93017; A9500; G0463; J2785 ==

== ENCOUNTER 2024-03-27 05:30 | Day surgery (SDC) | payer MEDICARE, BC | END 2024-03-27 23:00 | disposition home or self-care (01) | LOC: WOUND 05:30 | DX: E11.622 Type 2 diabetes mellitus with other skin ulcer (principal); L02.416 Cutaneous abscess of left lower limb; L73.2 Hidradenitis suppurativa | CPT/HCPCS: G0463 ==

== ENCOUNTER 2024-04-17 00:56 | Day surgery (SDC) | payer MEDICARE, BC ==
[2024-04-17] MEDS ORDERED: DULO60 PO (10:06)
[2024-04-17] MEDS ORDERED: Isosorbide Mono30 MG PO (10:08)
[2024-04-17] MEDS ORDERED: [UNRECOGNIZED DRUG - OTHER] INH (10:08)
[2024-04-17] MEDS ORDERED: METO50ER PO (10:09)
[2024-04-17] MEDS ORDERED: PROM25 PO (10:09)
[2024-04-17] MEDS ORDERED: ZOCOR20 MG PO (10:09)
[2024-04-17] MEDS ORDERED: ZOLP5 PO (10:10)
[2024-04-18] MEDS ORDERED: Aspir 8181 MG PO (12:04)
== END 2024-04-17 23:00 | disposition home or self-care (01) ==
LOC: WOUND 00:56
DX: L73.2 Hidradenitis suppurativa (principal); E11.9 Type 2 diabetes mellitus without complications; C34.90 Malignant neoplasm of unspecified part of unspecified bronchus or lung; Z86.16 Personal history of COVID-19
CPT/HCPCS: G0463

== ENCOUNTER 2024-04-18 08:26 | Day surgery (SDC) | payer MEDICARE, BC ==
[~2024-04-18] VITALS: Ht 152.4 cm; Wt 59.9 kg
[~2024-04-18 08:26] MED LIST changes: +Isosorbide Mono30 MG PO; +METO50ER PO; +PROM25 PO; +ZOCOR20 MG PO; +ZOLP5 PO; +[UNRECOGNIZED DRUG - OTHER] INH
[2024-04-18] MEDS ORDERED: NS 250 ML IV ONE (08:52)
[2024-04-18] MEDS ORDERED: Heparin Sodium 1000 Units/ML 10ML MDV ONE ×2 (08:52→09:14)
[2024-04-18] MEDS ORDERED: Verapamil HCL 2.5 MG/ML 2ML Injection ONE (08:52)
[2024-04-18] MEDS ORDERED: Nitroglycerin 2 MG/20 ML BTL ONE (08:52)
[2024-04-18] MEDS ORDERED: NS 1,000 ML IV ONE ×2 (08:52→09:14)
[2024-04-18 08:54] VITALS: BP 130/73
[2024-04-18] MEDS ORDERED: FentaNYL Citrate 50 MCG/ML 2 ML Injection ONE (09:13)
[2024-04-18] MEDS ORDERED: Midazolam HCl 1MG / ML 2ML Vial ONE (09:14)
[2024-04-18] MEDS ORDERED: Aspirin 325 MG Tab ONE (09:52)
[2024-04-18 10:53] VITALS: BP 149/95
[2024-04-18 11:00] VITALS: BP 163/75
[2024-04-18 11:15] VITALS: BP 147/70
[2024-04-18 11:30] VITALS: BP 152/78
[2024-04-18] MEDS ORDERED: Aspir 8181 MG PO (12:04)
[2024-04-18 12:30] VITALS: BP 136/55
--- NOTE | 2024-04-18 13:07 | NUR ---
PT AND VERBALIZED UNDERSTANDING OF WRITTEN AND VERBAL D/C INST. PT AMB TO BATHROOM /S DIFFUCULTY. NEG BLEEDING OR SWELLING R GROIN AREA. IV REMOVED. PT TAKEN OUT OF THE HRT CENTER VIA W/C.
== END 2024-04-18 13:40 | disposition home or self-care (01) ==
LOC: MHTC 08:26
DX: R07.9 Chest pain, unspecified (principal); I48.0 Paroxysmal atrial fibrillation; J44.9 Chronic obstructive pulmonary disease, unspecified; E11.9 Type 2 diabetes mellitus without complications; I25.2 Old myocardial infarction; Z79.01 Long term (current) use of anticoagulants; Z79.899 Other long term (current) drug therapy; Z88.1 Allergy status to other antibiotic agents
CPT/HCPCS: 76937; 93458; 99152; 99153; A9270; C1760; C1769; C1894; J1644; J2250; J3010; J7030; J7050; Q9967

== ENCOUNTER 2024-05-07 | Day surgery (SDC) | payer MEDICARE, BC ==
[~2024-05-07] MED LIST changes: +Aspir 8181 MG PO
[2024-05-07] MEDS ORDERED: Lidocaine HCl 4% Cream 5 GM ONE (11:39)
== END 2024-05-07 23:00 | disposition home or self-care (01) ==
LOC: WOUND
DX: L73.2 Hidradenitis suppurativa (principal); E11.9 Type 2 diabetes mellitus without complications; C34.90 Malignant neoplasm of unspecified part of unspecified bronchus or lung; Z86.16 Personal history of COVID-19
CPT/HCPCS: A9270; G0463

== ENCOUNTER 2024-05-14 01:38 | Day surgery (SDC) | payer MEDICARE, BC ==
[2024-05-14] MEDS ORDERED: Lidocaine HCl 4% Cream 5 GM ONE (11:14)
== END 2024-05-14 23:00 | disposition home or self-care (01) ==
LOC: WOUND 01:38
DX: L73.2 Hidradenitis suppurativa (principal); E11.9 Type 2 diabetes mellitus without complications; C34.90 Malignant neoplasm of unspecified part of unspecified bronchus or lung
CPT/HCPCS: A9270; G0463

== ENCOUNTER 2024-05-21 09:28 | Day surgery (SDC) | payer MEDICARE, BC | END 2024-05-21 23:00 | disposition home or self-care (01) | LOC: WOUND 09:28 | DX: E11.622 Type 2 diabetes mellitus with other skin ulcer (principal); L02.416 Cutaneous abscess of left lower limb; L73.2 Hidradenitis suppurativa | CPT/HCPCS: G0463 ==

== ENCOUNTER 2024-06-04 00:39 | Day surgery (SDC) | payer MEDICARE, BC | END 2024-06-04 23:00 | disposition home or self-care (01) | LOC: WOUND 00:39 | DX: L73.2 Hidradenitis suppurativa (principal); E11.622 Type 2 diabetes mellitus with other skin ulcer; L02.416 Cutaneous abscess of left lower limb; D64.9 Anemia, unspecified; L40.9 Psoriasis, unspecified; B17.9 Acute viral hepatitis, unspecified | CPT/HCPCS: 36415; 80074; G0463 ==

== ENCOUNTER 2024-06-14 05:14 | Day surgery (SDC) | payer MEDICARE, BC ==
[2024-06-14] MEDS ORDERED: Lidocaine HCl 4% Cream 5 GM ONE (14:42)
== END 2024-06-14 23:00 | disposition home or self-care (01) ==
LOC: WOUND 05:14
DX: L73.2 Hidradenitis suppurativa (principal); E11.9 Type 2 diabetes mellitus without complications; C34.90 Malignant neoplasm of unspecified part of unspecified bronchus or lung
CPT/HCPCS: A9270; G0463

== ENCOUNTER 2024-06-28 03:33 | Day surgery (SDC) | payer MEDICARE, BC ==
[2024-06-28] MEDS ORDERED: Lidocaine HCl 4% Cream 5 GM ONE (11:04)
== END 2024-06-28 23:00 | disposition home or self-care (01) ==
LOC: WOUND 03:33
DX: L73.2 Hidradenitis suppurativa (principal); E11.622 Type 2 diabetes mellitus with other skin ulcer; L02.416 Cutaneous abscess of left lower limb
CPT/HCPCS: A9270; G0463

== ENCOUNTER 2024-07-04 02:19 | Day surgery (SDC) | payer MEDICARE, BC ==
[2024-07-04] MEDS ORDERED: Lidocaine HCl 4% Cream 5 GM ONE (13:13)
== END 2024-07-04 23:00 | disposition home or self-care (01) ==
LOC: WOUND 02:19
DX: L73.2 Hidradenitis suppurativa (principal); E11.9 Type 2 diabetes mellitus without complications; C34.90 Malignant neoplasm of unspecified part of unspecified bronchus or lung
CPT/HCPCS: A9270; G0463

== ENCOUNTER 2024-07-11 00:13 | Day surgery (SDC) | payer MEDICARE, BC ==
[2024-07-11] MEDS ORDERED: Lidocaine HCl 4% Cream 5 GM ONE (10:56)
== END 2024-07-11 23:00 | disposition home or self-care (01) ==
LOC: WOUND 00:13
DX: L73.2 Hidradenitis suppurativa (principal); E11.622 Type 2 diabetes mellitus with other skin ulcer
CPT/HCPCS: A9270; G0463

== ENCOUNTER 2024-07-19 03:42 | Day surgery (SDC) | payer MEDICARE, BC | END 2024-07-19 23:00 | disposition home or self-care (01) | LOC: WOUND 03:42 | DX: L73.2 Hidradenitis suppurativa (principal); E11.622 Type 2 diabetes mellitus with other skin ulcer | CPT/HCPCS: G0463 ==

== ENCOUNTER 2024-07-26 02:43 | Day surgery (SDC) | payer MEDICARE, BC ==
[2024-07-26] MEDS ORDERED: Lidocaine HCl 4% Cream 5 GM ONE (12:37)
== END 2024-07-26 23:00 | disposition home or self-care (01) ==
LOC: WOUND 02:43
DX: S31.809A Unspecified open wound of unspecified buttock, initial encounter (principal); S31.109A Unspecified open wound of abdominal wall, unspecified quadrant without penetration into peritoneal cavity, initial encounter; L73.2 Hidradenitis suppurativa; E11.9 Type 2 diabetes mellitus without complications; C34.90 Malignant neoplasm of unspecified part of unspecified bronchus or lung; Z88.1 Allergy status to other antibiotic agents
CPT/HCPCS: A9270; G0463

== ENCOUNTER 2024-08-09 03:23 | Day surgery (SDC) | payer MEDICARE, BC | END 2024-08-09 23:00 | disposition home or self-care (01) | LOC: WOUND 03:23 | DX: L73.2 Hidradenitis suppurativa (principal); E11.622 Type 2 diabetes mellitus with other skin ulcer | CPT/HCPCS: G0463 ==

== ENCOUNTER 2024-09-18 02:59 | Day surgery (SDC) | payer MEDICARE, BC ==
[2024-09-18] MEDS ORDERED: Lidocaine HCl 4% Cream 5 GM ONE (13:17)
== END 2024-09-18 23:00 | disposition home or self-care (01) ==
LOC: WOUND 02:59
DX: E11.622 Type 2 diabetes mellitus with other skin ulcer (principal); L98.412 Non-pressure chronic ulcer of buttock with fat layer exposed; L98.492 Non-pressure chronic ulcer of skin of other sites with fat layer exposed; L73.2 Hidradenitis suppurativa; M35.9 Systemic involvement of connective tissue, unspecified
CPT/HCPCS: A9270; G0463